=== PATIENT | female | born 1995 | race American Indian/Alaskan Native ===

== ENCOUNTER 2017-01-25 20:14 | Emergency (ER) | payer OTHER ==
--- NOTE | 2017-01-25 21:53 | XRay Report ---
FINAL REPORT EXAM: XR HAND 3 RT HISTORY: dog bite, send for report COMPARISON: None available. FINDINGS: Four total images of the right hand obtained. No radiopaque foreign body. Bony structures are intact. Joint spaces are preserved. No acute fracture dislocation. IMPRESSION: No acute bony abnormality. No radiopaque foreign body.
[2017-01-25] MEDS ORDERED: TYLENOL ONE (22:12)
[2017-01-25] MEDS ORDERED: TYLENOL PO ONE (22:15)
[2017-01-26] MEDS ORDERED: NACL 0.9% 500 ML IR ONE (00:20)
[2017-01-26] MEDS ORDERED: AUGMENTIN 875 MG PO ONE (01:28)
[2017-01-26] MEDS ORDERED: NORCO 5/325 PO ONE (01:28)
[2017-01-26] MEDS ORDERED: ANCEF IM ONE (01:29)
[2017-01-26] MEDS ORDERED: BOOSTRIX IM ONE (01:29)
--- NOTE | 2017-01-26 01:29 | Emergency Department Report ---
ED Animal Bite HPI - General Chief Complaint: Animal Bite Stated Complaint: DOG BITE RT HAND Time Seen by Provider: 01/26/17 01:28 Source: patient Mode of arrival: Ambulatory Limitations: No Limitations - History of Present Illness Initial Comments: 21-year-old female no past medical history presents with complaint of dog bite to right hand. Patient states that earlier today she was at her aunt's house. Her aunts Rottweiler bit her right hand. As per the patient and her other family member at bedside dog's vaccinations are up-to-date and the correctional officer sergeant has paperwork to prove this. Denies any injuries to any other body part except for right hand. 2 visible puncture wounds one on the palm and one on the backside of hand. Moderate swelling of hand on the dorsal aspect. Small abrasions on front and back of hand. Patient able to range all of her fingers at [facility] PIPs and DIPs and some pain. Denies any other injuries. Unaware of her tetanus status. MD Complaint: animal bite Onset/Timin -: hour(s) Location: other (right hand) Right: Hand (puncture wounds right hand. Patient states she was bitten by a Rottweiler) Animal: dog (Rottweiler, and by family member) Animal Control Notified: No Description: household pet Mechanism: bite Pain Description: sharp Severity scale (0 -10): 6 Context: playing with animal Treatments Prior to Arrival: wound dressing(s) - Related Data Previous Rx's Medication Instructions Recorded Last Taken Type Amoxicillin/K Clav Tab [Augmentin 1 tab PO Q12HR #20 tab 01/26/17 Unknown Rx 875 mg] HYDROcodone/APAP 5-325 [Starkweather 1 each PO Q6HR PRN #12 tablet 01/26/17 Unknown Rx 5/325] Ibuprofen [Motrin] 600 mg PO Q8H PRN #30 tablet 01/26/17 Unknown Rx metroNIDAZOLE [Flagyl TAB] 500 mg PO Q8HR #21 tablet 01/26/17 Unknown Rx Allergies Allergy/AdvReac Type Severity Reaction Status Date / Time No Known Allergies Allergy Verified 01/25/17 21:08 ED Review of Systems ROS: Stated complaint: DOG BITE RT HAND Other details as noted in HPI Constitutional: denies: chills, fever Eyes: denies: eye pain, eye discharge, vision change ENT: denies: ear pain, throat pain Respiratory: denies: cough, shortness of breath, wheezing Cardiovascular: denies: chest pain, palpitations Endocrine: no symptoms reported Gastrointestinal: denies: abdominal pain, nausea, diarrhea Genitourinary: denies: urgency, dysuria, discharge Musculoskeletal: denies: back pain, joint swelling, arthralgia Skin: denies: rash, lesions Neurological: denies: headache, weakness, paresthesias Psychiatric: denies: anxiety, depression Hematological/Lymphatic: denies: easy bleeding, easy bruising ED Past Medical Hx - Past Medical History Previous Medical History?: No - Surgical History Past Surgical History?: Yes Hx Appendectomy: Yes (2014) - Social History Smoking Status: Never Smoker - Medications Home Medications: Home Medications Medication Instructions Recorded Confirmed Last Taken Type Amoxicillin/K Clav Tab [Augmentin 1 tab PO Q12HR #20 tab 01/26/17 Unknown Rx 875 mg] HYDROcodone/APAP 5-325 [Starkweather 1 each PO Q6HR PRN #12 tablet 01/26/17 Unknown Rx 5/325] Ibuprofen [Motrin] 600 mg PO Q8H PRN #30 tablet 01/26/17 Unknown Rx metroNIDAZOLE [Flagyl TAB] 500 mg PO Q8HR #21 tablet 01/26/17 Unknown Rx ED Physical Exam - General Limitations: No Limitations General appearance: alert, in no apparent distress - Head Head exam: Present: atraumatic, normocephalic - Eye Eye exam: Present: normal appearance, PERRL, EOMI - ENT ENT exam: Present: mucous membranes moist - Neck Neck exam: Present: normal inspection - Respiratory Respiratory exam: Present: normal lung sounds bilaterally. Absent: respiratory distress - Cardiovascular Cardiovascular Exam: Present: regular rate, normal rhythm. Absent: systolic murmur, diastolic murmur, rubs, gallop - GI/Abdominal GI/Abdominal exam: Present: soft, normal bowel sounds - Extremities Exam Extremities exam: Present: normal inspection - Expanded Upper Extremity Exam Right Upper Arm exam: Present: normal inspection, full ROM Elbow exam: Present: normal inspection, full ROM Forearm Wrist exam: Present: normal inspection, full ROM Hand Wrist exam: Present: tenderness, swelling (tenderness and swelling mid hand with multiple small abrasions and 2 puncture wounds) Hand L/R Front: 1 - Positive: other (puncture wound) Hand L/R Back: 1 - Small puncture wound Neuro motor exam: Present: wrist extension intact, thumb opposition intact, thumb IP flexion intact, thumb adduction intact, fingers 2-5 abduction intact Vascular: Present: radial pulse (distal radial and brachial pulses are fully intact, distal capillary refill less than one second all fingers distal sensation and distal range of motion of fingers intact on clinical exam box tenderness and hand on exam) - Back Exam Back exam: Present: normal inspection - Neurological Exam Neurological exam: Present: alert, oriented X3 - Psychiatric Psychiatric exam: Present: normal affect, normal mood - Skin Skin exam: Present: warm, dry, intact, normal color. Absent: rash ED Course Vital Signs 01/25/17 01/25/17 01/26/17 22:00 22:23 02:44 Temperature 98.8 F 98 F Pulse Rate 66 66 Respiratory 20 20 18 Rate Blood Pressure 121/60 Blood Pressure 113/66 [Left] O2 Sat by Pulse 98 99 Oximetry Critical care attestation.: If time is entered above; I have spent that time in minutes in the direct care of this critically ill patient, excluding procedure time. Critical Care Time: A/P: Dog bite right hand, abrasions, puncture wounds 1-Augmentin, metronidazole as per uptodate recommendations. As these are dog bites and puncture wounds are relatively small and will not suture to mitigate any potential infection. Hand irrigated length fully with saline and iodine at bedside 2-Motrin, Starkweather 3-wound check 48 hours 4-tetanus updated, patient given 1 dose Ancef here 5- triple antibiotic ointment to puncture sites and durations 6- x-ray shows no fractures no foreign body 7- as per patient dog is owned by a family member and animal has all of its vaccinations up-to-date including rabies, correctional officer sergeant of dog is able to provide dog pedigree information and vaccination information as per patient's ED Disposition Clinical Impression: Dog bite Qualifiers: Encounter type: initial encounter Qualified Code(s): W54.0XXA - Bitten by dog, initial encounter Puncture wound of right hand Qualifiers: Encounter type: initial encounter Foreign body presence: without foreign body Qualified Code(s): S61.431A - Puncture wound without foreign body of right hand , initial encounter Disposition: TO HOME OR SELFCARE Is pt being admited?: No Does the pt Need Aspirin: No Condition: Stable Instructions: Animal Bite (ED), Puncture Wound (ED) Additional Instructions: Patient to return to the ED in 48 hours for wound check Prescriptions: Amoxicillin/K Clav Tab [Augmentin 875 mg] 1 tab PO Q12HR #20 tab HYDROcodone/APAP 5-325 [Starkweather 5/325] 1 each PO Q6HR PRN #12 tablet PRN Reason: Pain Ibuprofen [Motrin] 600 mg PO Q8H PRN #30 tablet PRN Reason: Pain metroNIDAZOLE [Flagyl TAB] 500 mg PO Q8HR #21 tablet Referrals: [facility] [Provider Group] - 3-5 Days TAY LEUNG MD [Staff Physician] - 3-5 Days Forms: Accompanied Note, Work/School Release Form(ED) Time of Disposition: 02:29
[2017-01-26] MEDS ORDERED: TRIPLE ANTIBIOTIC TP ONE (02:37)
[2017-01-26 02:44] VITALS: BP 113/66
== END 2017-01-26 03:02 | disposition home or self-care (01) ==
LOC: ED 20:14
DX: S61.431A Puncture wound without foreign body of right hand, initial encounter (principal); W54.0XXA Bitten by dog, initial encounter; Y93.9 Activity, unspecified; Y92.9 Unspecified place or not applicable; Y99.9 Unspecified external cause status
CPT/HCPCS: 73130; 90471; 90715; 96372; 99283; J0690; A6250